=== PATIENT | female | born 1975 | race Two or more races ===

== ENCOUNTER 2024-12-14 15:43 | Emergency (ER) | payer BC, OTHER ==
[~2024-12-14] VITALS: Ht 188 cm; Wt 138.6 kg
[2024-12-14 15:44] VITALS: BP 125/80; PULSE 101; RESP 20; TEMP 98.9; O2SAT 95
--- NOTE | 2024-12-14 16:11 | ED.PDOC ---
HPI Allergic reaction HPI Comments This is a 49 year-old female with a Hx of hereditary angioedema and significant food and environmental allergies arrives in the ED today for assistance with a an angioedema event. Patient states she has some environmental event that occurred that threw her into an angioedema situation. Patient reports she needs 50-100mg of Benadryl as regularly prescribed to accommodate her angioedema as well as additional medication that patient has with her that has unavailable at most pharmacies. Patient is requesting sterile water to mix her medication with Benadryl at this time. Patient has no further complaints and otherwise denies SOB, rash, chest pain, palpitations, itchiness, throat pain, or nasal congestion. Patient arrives with a large bag of medication to address angioedema issues. Patient was slightly combative at arrival. Patient was more histrionic than in distress. Chief Complaint: Allergic Reaction Time Seen by MD: 15:41 Reviewed Notes: Nurses Notes, Medications, Allergies Allergies: Coded Allergies: No Known Drug Allergy (Verified Allergy, Unknown, 12/14/24) Information Source: Patient, Spouse Mode of Arrival: Ambulatory Severity: Moderate Rash: None SOB: None Difficulty swallowing: Moderate Pruritus: None Timing: Minutes Duration: Since onset Prehospital treatment: None Location: Face, Throat, Tongue Exposed to: Unknown Past Medical History PAST MEDICAL HISTORY: Denies Past Medical History (Other): hereditary angioedema Surgical History: Denies all surgeries LINTER TENDER History: No Pertinent LINTER TENDER History Family History Family History: Reviewed,noncontributory to illness, No family hx of Cancer, No family hx of DM, No family hx of Heart aayush, No family hx of HTN, No family hx ofKidney aayush, No family hx of Liver aayush, No family hx of Lung aayush, No family hx of Stroke Social History Smoker: Non-Smoker Alcohol: Denies ETOH Use Drugs: Denies Drug Use Lives In: Home Constitutional: denies: chills, diaphoresis, fatigue, fever, malaise, sweats, weakness, others EENTM: reports: others (Swelling of the left-sided cheek and tongue and throat); denies: blurred vision, double vision, ear bleeding, ear discharge, ear drainage, ear pain, ear ringing, eye pain, eye redness, hearing loss, mouth p ain, mouth swelling, nasal discharge, nose bleeding, nose congestion, nose pain, photophobia, tearing, throat pain, throat swelling, voice changes Respiratory: denies: cough, hemoptysis, orthopnea, SOB at rest, shortness of breath, SOB with excertion, stridor, wheezing, others Cardiovascular: denies: chest pain, dizzy spells, diaphoresis, Dyspnea on exertion, edema, irregular heart beat, left arm pain, lightheadedness, palpitations, PND, syncope, others Gastrointestinal: denies: abdomen distended, abdominal pain, blood streaked bowels, constipated, diarrhea, dysphagia, difficulty swallowing, hematemesis, melena, nausea, poor appetite, poor fluid intake, rectal bleeding, rectal pain, vomiting, others Genitourinary: denies: abnormal vagina bleeding, burning, dyspareunia, dysuria, flank pain, frequency, hematuria, incontinence, pain, , vagina discharge, urgency, others Neurological: denies: dizziness, fainting, headache, left sided numbness, left sided weakness, numbness, paresthesia, pre-existing deficit, right sided num bness, right sided weakness, seizure, speech problems, tingling, tremors, weakness, others Musculoskeletal: denies: back pain, gout, joint pain, joint swelling, muscle pain, muscle stiffness, neck pain, others Integumetry: denies: bruises, change in color, change in hair/nails, dryness, laceration, lesions, lumps, rash, wounds, others Allergic/Immunocompromised: denies: Difficulty Healing, Frequent Infections, Hives, Itching, others Hematologic/Lymphatic: denies: anemia, blood clots, easy bleeding, easy bruising, swollen glands, others Endocrine: denies: excessive hunger, excessive sweating, excessive thirst, excessive urination, flushing, intolerance to cold, intolerance to heat, unexplained weight gain, unexplained weight loss, others Psychiatric: denies: anxiety, bipolar disorder, depression, hopeless, panic disorder, schizophrenia, sleepless, suicidal, others All Other Systems: Reviewed and Negative Physical Exam General Appearance: Moderate Distress (Patient was in moderate distress due to her angioedema concerns. Patient was histrionic at time of initial evaluation.), Obese HEENT: Other (Patient displays a beefy oropharynx with swelling noted to the tongue and left-sided cheek. Airway is functional but thick.) Neck: Full Range of Motion, Non-Tender, Normal, Normal Inspection Respiratory: Chest Non-Tender, Lungs Clear, No Accessory Muscle Use, No Respiratory Distress, Normal Breath Sounds Cardiovascular: No Edema, No JVD, No Murmur, No Gallop, Normal Peripheral Pulses, Regular Rate/Rhythm Breast Exam: Deferred Gastrointestinal: No Organomegaly, Non Tender, No Pulsatile Mass, Normal Bowel Sounds, Soft Genitalia: Deferred Pelvic: Deferred Rectal: Deferred Extremities: No calf tenderness, Normal capillary refill, Normal inspection, No rmal range of motion, Non-tender, No pedal edema Neurologic: Alert, No Motor Deficits, Normal Affect, Normal Mood, No Sensory Deficits Cerebellar Function: NOT DONE Reflexes: NOT DONE Skin: Dry, Normal Color, Warm Lymphatic: No Adenopathy Was a procedure done? Was a procedure done?: No Differential diagnosis (all) Differential Diagnosis: Angioedema, Other (Allergic reaction) X-Ray, Labs, Meds, VS Vital Signs Date Time Temp Pulse Resp B/P (MAP) Pulse Ox O2 Delivery O2 Flow Rate FiO2 12/14/24 15:44 98.9 101 20 125/80 95 98.9 Current Medications Medications (Trade) Dose Ordered Sig/Antonio Route Start Time Stop Time Status Last Admin Diphenhydramine HCl (Benadryl Injection) 100 mg ONCE ONCE IV 12/14/24 16:00 12/14/24 16:02 DC 12/14/24 16:19 X-Ray, Labs, Meds, VS Comment Patient received 100 and Benadryl plus her personal medication and had reasonable relief of symptoms. Patient requested immediate discharge and did not want to stay for observation. I advised the patient that she could be putting herself into a concerning medical condition. She stated she understood and wanted to get home to [place]. Patient has been advised that Shyam Quezada as down the hill if needed on her trip back home to [place]. Images Reviewed?: Images reviewed and evaluated by me Time of 1ST Reevaluation: 16:35 Reevaluation 1ST: Improved Consultation: PCP Patient Education/Counseling: Diagnosis, Treatment Family Education/Counseling: Diagnosis, Treatment, No Family Present Medical Screening: No EMC Exist At This Time SEPSIS Sepsis Screen Date sepsis recognized/suspect: Dec 14, 2024 Time Sepsis recognized/suspect: 1544 Recent Procedure: No On Antibiotic Therapy: No Respiratory Rate >20: No Heart Rate >90: Yes Temp<36 C (96.8 F) or >38.3 C: No SBP <90 or MAP <65 mmHG: No New Acute Mental Status Change: No Is the patient on CPAP, BIPAP,: No Vital Signs Date Time Temp Pulse Resp B/P (MAP) Pulse Ox O2 Delivery O2 Flow Rate FiO2 12/14/24 15:44 98.9 101 20 125/80 95 98.9 Medications Medications Dose Ordered Sig/Antonio Route Start Time Stop Time Status Last Admin Dose Admin Diphenhydramine HCl 100 mg ONCE ONCE IV 12/14/24 16:00 12/14/24 16:02 DC 12/14/24 16:19 Departure 1 Departure Time of Disposition: 16:35 Impression: Primary Impression: Angioedema Disposition: 01 HOME / SELF CARE / HOMELESS Condition: Stable Additional Instructions: Advised follow up with the primary care provider for discussions related to today's visit. Discharged With: Self Critical Care Note Critical Care Time?: No Stability Stability form required: No Heart Score Heart Score: Heart Score Response (Comments) Value History N/A 0 EKG N/A 0 Age N/A 0 Risk Factors N/A 0 Troponin N/A 0 Total 0 I personally scribed for ELLI CARVAJAL PAC ([email or web address]) on 12/14/24 at 16:11. Electronically submitted by Emily TaverasMoxsie). ELLI CARVAJAL PAC Dec 14, 2024 16:11
[2024-12-14] MEDS: diphenhdrAMINE HCL 50 MG/1 ML VL IV ONE (16:19)
== END 2024-12-14 19:31 | disposition home or self-care (01) ==
LOC: ER 15:45
DX: T78.3XXA Angioneurotic edema, initial encounter (principal); Z79.899 Other long term (current) drug therapy
CPT/HCPCS: 96374; 99283; J1200